=== PATIENT | female | born 1945 | race Hispanic/Latino ===

== ENCOUNTER → 2017-11-20 | Outpatient (CLI) | payer MEDICARE, OTHER ==
[2017-11-20 09:51] LABS: INR 1.09; PROTHROMBIN TIME 14.7 seconds (11.9-14.5)
[2017-11-20 09:52] LABS: PARTIAL THROMBOPLASTIN TIME 34.5 seconds (23.8-35.5)
[2017-11-20 11:39] LABS: BODY FLUID COLOR YELLOW; BODY FLUID TYPE PLEURAL
[2017-11-20 11:40] LABS: BODY FLUID APPEARANCE SL.CLOUDY
[2017-11-20 11:41] LABS: RBC,BODY FLUID 414 cells/uL; WBC,BODY FLUID 113 cells/uL
[2017-11-20 11:51] LABS: LYMPHOCYTES,BODY FLUID 82 %; MONO/MACROPHG,BODY FLUID 11 %; NEUTROPHILS,BODY FLUID 6 %; OTHER CELLS,BODY FLUID 1 %
--- NOTE | 2017-11-20 18:19 | Diagnostic Imaging Report ---
PROCEDURE: CHEST XRAY POST PROCEDURE COMPARISON: Outside CT chest 09/27/2017. INDICATIONS: S/P THORACENTESIS FINDINGS: LUNGS: Chronic interstitial opacities with basilar predominance is again seen. Extensive calcified tracheobronchial tree. Central pulmonary venous congestion. PLEURA: Trace right pleural effusion/pleural thickening. HEART \T\ MEDIASTINUM: Moderate cardiomegaly. Atherosclerotic calcifications in the aorta. BONES \T\ SOFT TISSUES: No acute findings. CONCLUSION: 1. No pneumothorax. 2. Trace right pleural effusion/pleural thickening. 3. Unchanged moderate cardiomegaly with interstitial lung disease, worse in both lower lobes. Dictated by: Chaka Avina M.D. on 11/20/2017 at 18:28 Electronically approved by: Chaka Avina M.D. on 11/20/2017 at 18:28
--- NOTE | 2017-11-23 12:49 | Diagnostic Imaging Report ---
PROCEDURE: ULTRASOUND GUIDED THORACENTESIS COMPARISON: CT chest 11/01/2017, from outside hospital. INDICATIONS:pleural effusion FINDINGS: After informed consent was obtained, the patient was placed in the sitting position and preliminary ultrasound of the posterior chest identified a safe route into the right pleural effusion. No mass was visualized for biopsy. The overlying skin was prepped and draped in usual sterile fashion. Lidocaine 1% was used for local anesthesia. Under ultrasound guidance, a centesis needle was advanced into the pleural fluid and 350 cc were aspirated. The patient tolerated the procedure well and there were no immediate post-procedural complications. A post-thoracentesis chest radiograph will be obtained. CONCLUSION: Uncomplicated ultrasound-guided right thoracentesis with removal of 350 cc. No mass was visualized for biopsy. No biopsy was performed. Dictated by: Ernst Zimmerman M.D. on 11/23/2017 at 12:58 Electronically approved by: Ernst Zimmerman M.D. on 11/23/2017 at 12:58
== END ==
LOC: US 08:07
PROVIDERS: ATTEND Internal Medicine Critical Care Medicine
DX: J90 Pleural effusion, not elsewhere classified (principal); I51.7 Cardiomegaly
CPT/HCPCS: 32555; 36415; 71010; 83615; 84157; 84478; 85049; 85610; 85730; 88112; 88305; 89051